=== PATIENT | female | born 1955 | race Asian ===

== ENCOUNTER → 2016-10-10 | Outpatient (CLI) | payer OTHER ==
[~2016-10-10] MED LIST: ASPIRIN PO; BENAZEPRIL-HCTZ1 T21 PO; CLOPIDOGREL BIS75 MG PO; FOLIC ACID PO; HUMALOG100 U/M2; LANTUS SOLOSTAR3 ML; LEVOTHYROXINE88 MCG PO; LIPITOR40 MG PO; METFORMIN; METFORMIN PO; METOPROLOL TAR25 MG DOB; NORVASC PO; VITAMIN B-121000 MCG PO
--- NOTE | ~2016-10-10 | US77 ---
[facility] A Service of [facility] & [facility] RADIOLOGY TEXT RESULTS PATIENT: CHARLOTTE LUI LOCATION: [facility] [[email or web address] : 53 UNIT #: [id number] AGE: [address]: Celeste Maravilla MD SEX: F ORDER DR: [id number] [facility] [address] [place], [place] [address] [id number] O MR#: [id number] Acc #: [id number] NAME: CHARLOTTE LUI : 1955 SEX: F STUDY DATE/TIME: 10/10/2016 12:48 UNIT: [facility] [[email or web address] ROOM: STUDY DESCRIPTION: US Kidney Bilateral Complete Attending Physician: Celeste Maravilla Referring Physician: Celeste Maravilla Ordering Physician: Fernanda Maravilla M.D. Primary Care Physician: Trini Castillo M.D. MEDICAL IMAGING REPORT This report is preliminary unless electronic signature is present EXAM Renal ultrasound, 10/10/16 INDICATIONS Elevated creatinine level. History of hypertension and hyperlipidemia. GFR 40.5. Creatinine 1.4. TECHNIQUE Sonographic evaluation is performed of the kidneys and bladder in multiple planes. No comparison. FINDINGS Incidental note is made of hepatic steatosis. Right kidney measures 9.2 cm in ydyf-yo-nato length. Left kidney measures up to 10.6 cm in vpgi-gz-zjhp length. Both kidneys are morphologically normal and nonobstructed. Urinary bladder is normal. There is a hypoechoic lesion noted adjacent to the left kidney. It measures about 11 mm in diameter. The integrated circuits inspector notes this is a cyst. This is not clearly a simple cyst. It is unclear whether or not it is truly arising from the kidney. Consider noncontrast CT for follow up. IMPRESSION 1. Morphologically normal nonobstructed kidneys. 2. Hepatic steatosis. 3. And 11 mm hypoechoic lesion adjacent to the left kidney. This could reflect a complex cyst. It is unclear whether or not it is truly arising from the left kidney or is adjacent to it. Consider followup with noncontrast CT. Dictated by... Scottie Mcginnis Jr., M.D. STS. [facility] A Service of [facility] & [facility] RADIOLOGY TEXT RESULTS PATIENT: CHARLOTTE LUI LOCATION: [facility] [[email or web address] : 53 UNIT #: [id number] AGE: [address]: Celeste Maravilla MD SEX: F ORDER DR: THIS IS AN ELECTRONICALLY VERIFIED REPORT Scottie Mcginnis Jr., M.D. at 10/11/2016 3:49 PM LAKSHMI/shawn TD: 10/11/2016 14:20 JOB #: [id number] MEDICAL IMAGING REPORT Page 1 of 1 COPY
== END | disposition home or self-care (01) ==
LOC: CGUS 12:25
DX: R79.89 Other specified abnormal findings of blood chemistry (principal); K76.0 Fatty (change of) liver, not elsewhere classified; N28.9 Disorder of kidney and ureter, unspecified
CPT/HCPCS: 76770

== ENCOUNTER → 2016-10-24 | Outpatient (CLI) | payer OTHER ==
--- NOTE | ~2016-10-24 | CT7 ---
[facility] A Service of [facility] RADIOLOGY TEXT RESULTS PATIENT: CHARLOTTE LUI LOCATION: [facility] : 53 UNIT #: [id number] AGE: [address]: Celeste Maravilla MD SEX: F ORDER DR: [id number] [place], [place] [address] [id number] O MR#: [id number] Acc #: [id number] NAME: CHARLOTTE LUI : 1955 SEX: F STUDY DATE/TIME: 10/24/2016 14:03 UNIT: [facility] ROOM: STUDY DESCRIPTION: CT Abdomen Wo Cont Attending Physician: Fernanda Maravilla M.D. Referring Physician: Fernanda Maravilla M.D. Ordering Physician: Fernanda Maravilla M.D. Primary Care Physician: Trini Castillo M.D. MEDICAL IMAGING REPORT This report is preliminary unless electronic signature is present EXAM CT abdomen without contrast INDICATION Follow up left kidney lesion. Indeterminate possible left renal lesion on recent ultrasound. Observation for renal mass. PROCEDURE Unenhanced CT of the abdomen. This CT examination was performed with one or more of the following radiation dose reduction techniques: automatic exposure control, adjustment of mA and/or kV according to patient size, and iterative reconstruction. COMPARISON Renal ultrasound 10/10/2016. FINDINGS Included lung bases are clear. Liver, spleen, adrenal glands, pancreas and gallbladder have unremarkable unenhanced appearance. Included bowel loops are nondilated. There is no renal mass seen on this unenhanced CT. There are a few small splenules between the spleen and the left kidney. The abnormality on the previous ultrasound is favored to represent a splenule. No aggressive appearing bone lesion. IMPRESSION 1. No acute findings. 2. No renal mass. 3. Small splenules adjacent to the left kidney, representing the abnormality on the previous ultrasound. [facility] A Service of [facility] RADIOLOGY TEXT RESULTS PATIENT: CHARLOTTE LUI LOCATION: [facility] : 53 UNIT #: [id number] AGE: [address]: Celeste Maravilla MD SEX: F ORDER DR: Dictated by... Venkatesh Quintana M.D. THIS IS AN ELECTRONICALLY VERIFIED REPORT Venkatesh Quintana M.D. at 10/25/2016 5:00 PM GRACY/daisy TD: 10/25/2016 12:30 JOB #: [id number] MEDICAL IMAGING REPORT Page 1 of 1 COPY
== END | disposition home or self-care (01) ==
LOC: CCAT 12:50
DX: N28.89 Other specified disorders of kidney and ureter (principal)
CPT/HCPCS: 74150